=== PATIENT | female | born 1940 | race Caucasian/White ===

== ENCOUNTER → 2017-03-25 | Outpatient (CLI) | payer MEDICARE, OTHER ==
[~2017-03-25] MED LIST: ARMOUR THYROID60 MG PO; ARMOUR THYROID90 MG PO; COLACE 100100 MG/CAP PO; MULTIPLE VITAMI1 CAP PO; NORCO 325 MG-51 TAB PO; NORCO 325 MG-7.1 TAB PO; PRESERVISION1 SGL PO; PYRIDIUM 100MG100 MG PO; SYNTHROID0.075 MG PO; TRAVATAN Z 2.52.5 ML OU
== END ==
LOC: COL.RAD 06:42
DX: Z85.51 Personal history of malignant neoplasm of bladder (principal); N81.10 Cystocele, unspecified

== ENCOUNTER 2017-04-20 14:22 | Emergency (ER) | payer MEDICARE, OTHER ==
[~2017-04-20] VITALS: Ht 154.9 cm; Wt 59.1 kg
[~2017-04-20 14:22] MED LIST changes: -NORCO 325 MG-51 TAB PO
[2017-04-20 14:28] VITALS: TEMP 97.6
[2017-04-20] MEDS ORDERED: NORCO 325 MG-51 TAB PO (16:53)
[2017-04-20 17:24] VITALS: BP 151/66; PULSE 58
== END 2017-04-20 17:30 | disposition home or self-care (01) ==
LOC: COL.ER 14:22
DX: S32.010A Wedge compression fracture of first lumbar vertebra, initial encounter for closed fracture (principal); M19.90 Unspecified osteoarthritis, unspecified site; E03.9 Hypothyroidism, unspecified; Z79.82 Long term (current) use of aspirin; Z87.891 Personal history of nicotine dependence; Z85.51 Personal history of malignant neoplasm of bladder; Z85.3 Personal history of malignant neoplasm of breast; Z98.890 Other specified postprocedural states; W01.0XXA Fall on same level from slipping, tripping and stumbling without subsequent striking against object, initial encounter
CPT/HCPCS: J2270; J2405

== ENCOUNTER → 2017-07-02 | Outpatient (CLI) | payer MEDICARE, OTHER ==
[~2017-07-02] MED LIST changes: +NORCO 325 MG-51 TAB PO
== END ==
LOC: MC.RAD 13:36
DX: Z12.31 Encounter for screening mammogram for malignant neoplasm of breast (principal)

== ENCOUNTER → 2023-12-21 | Outpatient (CLI) | payer MEDICARE, OTHER | LOC: MC.RAD 13:00 | DX: Z12.31 Encounter for screening mammogram for malignant neoplasm of breast (principal) ==